=== PATIENT | male | born 1935 | race Caucasian/White ===

== ENCOUNTER 2017-10-18 12:04 | Emergency (ER) | payer MEDICARE, MEDICAID ==
[2017-10-18 12:38] VITALS: BP 137/61
[2017-10-18] MEDS ORDERED: Albuterol/Ipratropium NEB.SOL* Albuterol 2.5 MG/Ipratropium 0.5 MG 3 ML INH ONE (12:40)
--- NOTE | 2017-10-18 13:08 | UC ---
Respiratory Complaint HPI - HPI Summary HPI Summary: 82 yo gentleman presents accompanied by adult daughter c/o progressively worse 3 days cough, sob. Reported to RN + BLE swelling as well. No pain perse in chest, nor palpitations. No GI issues. Unable to sleep 2/2 cough. No recent fever / chills. + significant medical hx including COPD, asthma, does not use oxygen, does not currently have a nebulizer. Possible heart condition - per daughter, he has a comprehensive advisor who has ordered many tests including a stress test Nov 01. Hx aneurysm - details unclear (type, size, recent imaging, tx plan) - History of Current Complaint Chief Complaint: UCRespiratory Stated Complaint: BREATHING,LEG PAIN Time Seen by Provider: 10/18/17 12:40 Hx Obtained From: Patient, Family/Skein [employer] Drier Severity Initially: Moderate Severity Currently: Severe - Risk Factors Pulmonary Embolism Risk Factors: Smoking - Allergies/Home Medications Allergies/Adverse Reactions: Allergies Allergy/AdvReac Type Severity Reaction Status Date / Time No Known Allergies Allergy Verified 10/18/17 12:25 Home Medications: Home Medications Albuterol HFA INHALER* [Ventolin HFA Inhaler*] 2 puff INH Q4H PRN 10/18/17 [ History Confirmed 10/18/17] Aspirin Low Dose CHEW TAB* [Aspirin Low Dose TAB*] 81 mg PO DAILY 10/18/17 [ History Confirmed 10/18/17] Doxazosin Mesylate [Cardura] 2 mg PO DAILY 10/18/17 [History Confirmed 10/18/17] Finasteride TAB* [Proscar TAB*] 5 mg PO DAILY 10/18/17 [History Confirmed ] Fluticasone-Salmeterol 100-50* [Advair Diskus 100-50*] 1 puff INH BID 10/18/17 [ History Confirmed 10/18/17] Lisinopril TAB* [Prinivil TAB*] 10 mg PO DAILY 10/18/17 [History Confirmed 10/18] PMH/Surg Hx/FS Hx/Imm Hx Previously Healthy: No - see hpi / pmh - Surgical History Surgical History: Yes Surgery Procedure, Year, and Place: COLON SURGERY - Social History Alcohol Use: None Substance Use Type: None Smoking Status (MU): Light Every Day Tobacco Smoker Type: Cigarettes Amount Used/How Often: 1/2 PPD Household Exposure Type: Cigarettes - Immunization History Most Recent Influenza Vaccination: FALL 2016 Review of Systems Constitutional: Fatigue Skin: Negative Eyes: Negative ENT: Nasal Discharge, Other - right ear fullness Respiratory: Shortness Of Breath, Cough Cardiovascular: Other - see above Gastrointestinal: Negative Genitourinary: Negative Motor: Negative Neurovascular: Negative Musculoskeletal: Edema Neurological: Negative Psychological: Negative Is Patient Immunocompromised?: No All Other Systems Reviewed And Are Negative: Yes Physical Exam Triage Information Reviewed: Yes Appearance: Well-Nourished, Ill-Appearing - looks tired. but NAD. Sitting up in wheelchair. Conversing in full sentances, appropriately. Vital Signs: Initial Vital Signs Temp 98.5 F 10/18/17 12:29 Resp 24 10/18/17 12:29 BP 137/61 10/18/17 12:29 Pulse Ox 92 10/18/17 12:29 Vital Signs Reviewed: Yes Eye Exam: Normal - grossly normal. ENT: Positive: Nasal congestion, Nasal drainage, TM dull - TM dull L, TM sup rim visible, neves. But L EAC o/w is impacted. D/w pt and daughter. They will f/u Dr. Young (who flushed the ear last week) after hospital discharge, or if hospitalized, will have someone look at and possibly flush the ear. Neck exam: Other - unable to appreciate degree of jvd 2/2 sitting up and / or leaning forward Neck: Positive: Supple Respiratory Exam: Other - Diffuse insp / exp wheezing. Dec BS left base. + exp muscle use Respiratory: Positive: Rhonchi, Wheezing Cardiovascular Exam: Other - HR regular, correlates with R radial pulse. Non diaphoretic. Cardiovascular: Positive: Brisk Capillary Refill Abdominal Exam: Normal Abdomen Description: Positive: Nontender - sitting up w/o complaints Musculoskeletal Exam: Other - moves all 4 ext's Musculoskeletal: Positive: Edema @ - mild BLE edema, + venous insuff changes. Neurological Exam: Normal - grossly nonfocal, detailed neuro exam not done Neurological: Positive: Fatigued Psychological Exam: Normal - c Psychological: Positive: Normal Response To Family - conversing easily and appropriately UC Diagnostic Evaluation - Laboratory O2 Sat by Pulse Oximetry: 92 Respiratory Course/Dx - Course Course Of Treatment: Feels better s/p DuoNeb (note the phys exam as noted is during the last portion of the duoneb). D/w pt and daughter. Strongly recommend trasnfer to ED. They agree - want to go to [place] ED. Agree to go via EMS, I strongly recommend EMS given complicated hx and mult comorbidities. Transfer disposition guarded. 13:03 both ED telephone lines busy. 13:16 no answer ED. 13:27 spoke with Norma Christensen NP. Questions as posed answered to the best of my ability. - Differential Dx/Diagnosis Provider Diagnoses: Cough, SOB. Hx cardiothoracic problems Discharge - Discharge Plan Condition: Guarded Disposition: TRANS HIGHER LVL OF CARE FAC Referrals: Tereso Samson MD [Primary Care Provider] -
== END 2017-10-18 13:25 | disposition short-term general hospital (02) ==
LOC: UCCORT 12:04
DX: R05 Cough (principal); R06.02 Shortness of breath; J44.9 Chronic obstructive pulmonary disease, unspecified; F17.210 Nicotine dependence, cigarettes, uncomplicated; Z79.82 Long term (current) use of aspirin
CPT/HCPCS: 99214; A9270-GY; G0463